=== PATIENT | female | born 1950 | race Caucasian/White ===

== ENCOUNTER → 2018-07-28 10:26 | Outpatient (CLI) | payer MEDICARE, OTHER, SELFPAY ==
--- NOTE | 2018-07-28 | DI.RAD.S_ITS ---
PROCEDURE: FL JOINT INJECTION LARGE LT INDICATIONS: UNILATERAL PRIMARY OSTEOARTHRITIS TECHNIQUE: The indications, alternatives, benefits, risks, and complications of the procedure were explained to the patient. Written informed consent was obtained and placed in the chart. The patient was placed in an appropriate position on the fluoroscopy table, and a site was chosen for percutaneous access under fluoroscopic guidance. The site was prepped and draped in a sterile fashion. Local anesthetic was administered using a 1% lidocaine solution. A hypodermic or spinal needle was then used to access the symptomatic joint. Intra-articular location of the needle tip was confirmed by injecting a small amount of contrast, followed by steroid administration. The needle was then withdrawn, and a bandage applied to the puncture site. FINDINGS: Joint injected: Right hip Medications injected: One mL of 40 mg/mL Kenalog and 3 mL of 0.5% Ropivacaine mixture. Patient's pain before injection: 7 out of 10. Patient's pain after injection: 1 out of 10. Complications: None. IMPRESSION: Successful fluoroscopically guided administration of steroid and anaesthetic solution into the right hip joint. Dictated by: Binh Knight M.D. on 07/29/2018 at 9:19 Approved by: Binh Knight M.D. on 07/29/2018 at 9:21
== END ==
PROVIDERS: PCP Family Medicine; Visit Provider Orthopaedic Surgery
DX: M16.11 Unilateral primary osteoarthritis, right hip (principal)
CPT/HCPCS: 20610; 77002

== ENCOUNTER 2019-02-22 08:07 | Inpatient (IN) | payer MEDICARE, OTHER, SELFPAY ==
[2019-02-15 10:00] VITALS: BMI 38.6
[2019-02-22] VITALS (17 sets, daily range): BP systolic 97–132; BP diastolic 36–71; PULSE 64–97; RESP 10–21; TEMP 36.1–36.9; O2SAT 93–100; BMI 38.7
--- NOTE | 2019-02-22 08:00 | DI.RAD.S_ITS ---
PROCEDURE: XR PELVIS 1-2V INDICATIONS: POST OPERATIVE RIGHT HIP TECHNIQUE: Intra-operative view of the pelvis and hip acquired. COMPARISON: [facility] Goldman, CR, XR PELVIS WITH LATERAL HIP RIGHT, 01/28/2019, 11:13. FINDINGS: Bones: Intraoperative devices prior to placement of arthroplasty prostheses are in expected positions. No fractures or suspicious bony lesions. Soft tissues: Overlying surgical retractors are present, along with other intraoperative changes. IMPRESSION: Right hip arthroplasty with prosthesis in anatomic alignment. Dictated by: Mayra Ramos M.D. on 02/22/2019 at 15:24 Approved by: Mayra Ramos M.D. on 02/22/2019 at 15:25
[2019-02-22] MEDS: LACTATED RINGERS 1,000 ML 42 ML IV ×2 (09:28→13:42)
--- NOTE | 2019-02-22 09:41 | PM.PREOP ---
Pre-operative Note Interval Note History & Physical reviewed/Exam performed by Physician: Yes Changes to H&P: No
[2019-02-22] MEDS: ACETAMINOPHEN 325 MG TABLET 975 MG PO (09:43)
[2019-02-22] MEDS: PREGABALIN 75 MG CAPSULE PO (09:43)
[2019-02-22] MEDS: CELECOXIB 200 MG CAPSULE PO (09:43)
--- NOTE | 2019-02-22 09:57 | SUR.PREOP ---
Vantin allergy discussed with Dr. Frost. Pt reports tolerating penicillin in the past. Ok to given Ancef per .
[2019-02-22] MEDS: CEFAZOLIN 2 GM/100 ML FROZ.PIGGY IV ×2 (12:24→21:37)
--- NOTE | 2019-02-22 12:40 | SUR.OPER ---
Lateral on padded OR bed. Gel axillary roll. Arms secured on padded armboard with pillow supporting top arm. Padded hip positioner braces x4 - anterior and posterior chest and pelvis. Additional gel pad used anterior pelvis. Gel pad under bottom leg from knee to foot and secured with tape over sheet.
[2019-02-22] MEDS: MORPHINE 4 MG/ML INJ INJ (12:45)
[2019-02-22] MEDS: ROPIVACAINE 0.5% PF 5 MG/ML 20ML AMP 60 ML INJ (12:46)
[2019-02-22] MEDS: KETOROLAC 30 MG/ML VIAL IV (12:46)
--- NOTE | 2019-02-22 14:03 | PM.OP.1 ---
Operative Date/Time/Diagnoses Date of procedure: 02/22/19 Time of procedure: 14:03 Pre-op diagnosis: Right hip degenerative joint disease Post-op diagnosis: same Procedure & Clinicians Procedure: Right total hip arthroplasty (CPT code 79094 with social research assistant) Same procedure as scheduled: Yes Indications: Patient is an 68-year-old female with severe right hip DJD. The patient has pain with activities and at rest, limited ambulation and activity tolerance, difficulties with ADLs, and failure of conservative treatment. We have discussed the nature of condition, treatment options, risks and benefits, and patient elects to proceed with total hip arthroplasty and gives informed consent. Surgeon: Eyad Frost Fish And Game Warden: Alonso Rizo Anesthesia Type: General and Spinal Operative Notes Closure Type: primary Specimen(s): none sent Prosthetic devices, grafts, tissues, transplants, or devices: Acetabulum: Palacio [employer]hew R3 acetabular component size 52 mm Femoral component: Palacio [employer]hew Anthology stem size 6 with standard offset Femoral head: 36 mm + 0 cobalt chrome Estimated Blood Loss (mL): 200 Blood products transfused: none Procedure in detail: After satisfaction induction of anesthetic, and administration of IV antibiotics, the patient was positioned in the lateral decubitus position with all bony prominences well padded and pelvic position secured using a hip tank builder supervisor positioning device. Right hip and lower extremity prepped and draped in the usual sterile fashion, 1st dose of intravenous tranexamic acid was administered, then a longitudinal incision was created centered over the greater trochanter and carried sharply through the skin and subcutaneous tissues down to the fascia joshua which was divided longitudinally and retracted with a Charnley retractor. External rotators visualize, cut, tagged, and retracted posteriorly, then the capsule was cut in a T-type fashion with the corners tagged and retracted. Hip was dislocated and femoral neck cut made according to preoperative templating. Acetabular retractors then placed, and the acetabular labrum and osteophytes were excised. The acetabulum was then sequentially reamed to 51 mm with an excellent circumferential ream and fit with the trial. The trial component was removed and a permanent size 52 mm Palacio [employer] Nephew R3 acetabular component was selected, positioned, and impacted with satisfactory position and fixation achieved. Permanent liner was then inserted with the elevated lip directed posteriorly. Soft tissue then removed off the lateral femoral neck in the lateral neck was entered using a box osteotome. T-handled reamers placed down the canal followed by sequential broaching to 6 with the final broach left in place for trial reduction which demonstrated excellent leg length, range of motion, and stability characteristics with a 36 mm +0 trial ball. The trial and broach were removed, and a permanent size 6 Palacio [employer] Nephew Synergy stem was selected and inserted with excellent position and fixation achieved. Another trial reduction yielded the above characteristics so the trial ball was exchanged for a permanent 36 mm +0 cobalt chrome ball. The hip was irrigated and reduced and excellent leg length range of motion and stability characteristics were achieved and maintained. Periarticular tissues were infiltrated with ropivacaine, morphine, and Toradol. The hip was copiously irrigated, and the capsule repaired with #2 Ethibond, and the piriformis was repaired back to the greater trochanter with the same. Fascia joshua closed with interrupted #1 Ethibond sutures, and the subcutaneous tissues were closed in 2 layers of 0 Vicryl and 2 0 Vicryl. Skin was closed with amalia and sterile dressings applied. Second dose of tranexamic acid was administered intravenously, and the anesthetic was terminated. Complications: none Condition: stable Disposition: PACU Plan for aftercare: Patient will be admitted to the acute care [facility], and anticipate discharge on postop day 1 or 2 with follow-up in office in 10-14 days. Outpatient physical therapy will be arranged and patient will continue to observe posterior hip precautions. Patient will continue use of postoperative Lovenox for 10 days postop.
--- NOTE | 2019-02-22 14:07 | P.OP_ITS ---
Operative Date/Time/Diagnoses Date of procedure: 02/22/19 Time of procedure: 14:03 Pre-op diagnosis: Right hip degenerative joint disease Post-op diagnosis: same Procedure & Clinicians Procedure: Right total hip arthroplasty (CPT code 40468 with assistant city attorney) Same procedure as scheduled: Yes Indications: Patient is an 68-year-old female with severe right hip DJD. The patient has pain with activities and at rest, limited ambulation and activity tolerance, difficulties with ADLs, and failure of conservative treatment. We have discussed the nature of condition, treatment options, risks and benefits, and patient elects to proceed with total hip arthroplasty and gives informed consent. Surgeon: Eyad Frost Community Service Manager: Alonso Rizo Anesthesia Type: General and Spinal Operative Notes Closure Type: primary Specimen(s): none sent Prosthetic devices, grafts, tissues, transplants, or devices: Acetabulum: Palacio [employer] Nephew R3 acetabular component size 52 mm Femoral component: Palacio and Nephew Anthology stem size 6 with standard offset Femoral head: 36 mm + 0 cobalt chrome Estimated Blood Loss (mL): 200 Blood products transfused: none Procedure in detail: After satisfaction induction of anesthetic, and administration of IV antibiotics, the patient was positioned in the lateral decubitus position with all bony prominences well padded and pelvic position secured using a hip capacity planner positioning device. Right hip and lower extremity prepped and draped in the usual sterile fashion, 1st dose of intravenous tranexamic acid was administered, then a longitudinal incision was created centered over the greater trochanter and carried sharply through the skin and subcutaneous tissues down to the fascia joshua which was divided longitudinally and retracted with a Charnley retractor. External rotators visualize, cut, tagged, and retracted posteriorly, then the capsule was cut in a T-type fashion with the corners tagged and retracted. Hip was dislocated and femoral neck cut made according to preoperative templating. Acetabular retractors then placed, and the acetabular labrum and osteophytes were excised. The acetabulum was then sequentially reamed to 51 mm with an excellent circumferential ream and fit with the trial. The trial component was removed and a permanent size 52 mm Palacio and Nephew R3 acetabular component was selected, positioned, and impacted with satisfactory position and fixation achieved. Permanent liner was then inserted with the elevated lip directed posteriorly. Soft tissue then removed off the lateral femoral neck in the lateral neck was entered using a box osteotome. T- handled reamers placed down the canal followed by sequential broaching to 6 with the final broach left in place for trial reduction which demonstrated excellent leg length, range of motion, and stability characteristics with a 36 mm +0 trial ball. The trial and broach were removed, and a permanent size 6 Palacio and Nephew Synergy stem was selected and inserted with excellent position and fixation achieved. Another trial reduction yielded the above characteristics so the trial ball was exchanged for a permanent 36 mm +0 cobalt chrome ball. The hip was irrigated and reduced and excellent leg length range of motion and stability characteristics were achieved and maintained. Periarticular tissues were infiltrated with ropivacaine, morphine, and Toradol. The hip was copiously irrigated, and the capsule repaired with #2 Ethibond, and the piriformis was repaired back to the greater trochanter with the same. Fascia joshua closed with interrupted #1 Ethibond sutures, and the subcutaneous tissues were closed in 2 layers of 0 Vicryl and 2 0 Vicryl. Skin was closed with amalia and sterile dressings applied. Second dose of tranexamic acid was administered intravenously, and the anesthetic was terminated. Complications: none Condition: stable Disposition: PACU Plan for aftercare: Patient will be admitted to the acute care [facility], and anticipate discharge on postop day 1 or 2 with follow-up in office in 10-14 days. Outpatient physical therapy will be arranged and patient will continue to observe posterior hip precautions. Patient will continue use of postoperative Lovenox for 10 days postop.
--- NOTE | 2019-02-22 14:45 | PT.IPTN ---
Current Diagnoses Unilateral primary osteoarthritis, right hip (02/22/19) Surgery Performed Operation Date: 02/22/19 10:30 Actual Procedures p Total Hip Arthroplasty-Posterior(Right) - Eyad Frost MD Physical Therapy Treatment Note Notes Pt just arriving to unit, not yet ready to participate in therapy assessment. PT to attempt later in afternoon or tomorrow.
--- NOTE | 2019-02-22 15:26 | PC.NURSE ---
Pt transferred to the floor from PACU at 1500 with O2 1L=99%; A & O X3; [facility] drsg to right hip c/d/i; PPP; denies pain; IV saline locked; call light placed within reach and report given to evening RN
[2019-02-22] MEDS: LACTATED RINGERS 1,000 ML 125 ML IV (15:32)
[2019-02-22] MEDS: OXYCODONE/ACETAMINOPHEN 5/325 TABLET 1 TAB PO (18:08)
[2019-02-22] MEDS: ROSUVASTATIN 10 MG TABLET 5 MG PO (21:38)
[2019-02-23] VITALS (7 sets, daily range): BP systolic 112–140; BP diastolic 42–65; PULSE 77–100; RESP 16–18; TEMP 36.4–36.8; O2SAT 93–97
[2019-02-23] MEDS: LACTATED RINGERS 1,000 ML 125 ML IV (00:05)
[2019-02-23] MEDS: CEFAZOLIN 2 GM/100 ML FROZ.PIGGY IV (05:05)
[2019-02-23 05:33] LABS: Hematocrit 34.6 % (36-46)
--- NOTE | 2019-02-23 07:40 | PM.PNPO.1 ---
Subjective Date Patient Seen: 02/23/19 Time Patient Seen: 07:41 Interval history: Patient's pain is mild. Denies fever chills. No nausea /vomiting. Exam Vital Signs (past 8 hours): - 02/23/19 00:10 02/23/19 03:16 Temperature 98.0 F Pulse Rate 95 H 100 H Respiratory Rate 16 18 Blood Pressure 138/61 Pulse Oximetry 94 96 Oxygen Delivery Method Room Air Oxygen Flow Rate 4 Narrative Exam Narrative: Pleasant 68-year-old female resting comfortably in bed in no apparent distress. Zena dressing on and functioning. Sensation grossly intact to light touch. Motor function is intact distally. Right leg is warm and dry. Objective Labs Result Diagrams: 02/23/19 05:03 Labs: Laboratory Results - last 24 hr 02/23/19 05:03 Hgb 11.0 L Hct 34.6 L Assessment & Plan Post-op Postoperative Procedures Operation Date: 02/22/19 10:30 Actual Procedures Side Surgeon p Total Hip Arthroplasty-Posterior Right Eyad Frost MD Patient progressing as expected status post right total hip arthroplasty. Weightbearing as tolerated right lower extremity. Posterior hip precautions. Likely discharge home tomorrow.
[2019-02-23] MEDS: HYDROCODONE/ACET 5/325 TABLET 1 TAB PO ×2 (08:45→18:06)
[2019-02-23] MEDS: CITALOPRAM 20 MG TABLET PO (08:45)
[2019-02-23] MEDS: ENOXAPARIN 40 MG/0.4 ML SYRINGE SUBCUT (08:49)
[2019-02-23] MEDS: SODIUM CHLORIDE 0.9% FLUSH 10 ML IV ×2 (08:50→21:36)
--- NOTE | 2019-02-23 09:50 | PT.IIE ---
Current Diagnoses Unilateral primary osteoarthritis, right hip (02/22/19) Surgery Performed Operation Date: 02/22/19 10:30 Actual Procedures p Total Hip Arthroplasty-Posterior(Right) - Eyad Frost MD Surgical History (Last Updated 02/15/19 @ 10:30 by Madhuri Recio RN) History of bladder suspension procedure (Acute) History of dilation and curettage (Acute) Hx of arthroscopy of left knee (Acute) Hx of cholecystectomy (Acute) Hx of tonsillectomy (Acute) Medical History (Last Updated 02/15/19 @ 10:31 by Madhuri Recio RN) Acid reflux (Acute) Bilateral cataracts (Acute) Bronchitis (Acute) Depression (Acute) Fatty liver (Acute) Frequent urinary tract infections (Acute) H/O: hysterectomy (Acute ~1997) HLD (hyperlipidemia) (Acute) Impaction, bowel (Acute ~2013) Migraines (Acute) Mitral valve prolapse (Acute) Osteoarthritis (Acute) Pre-diabetes (Acute) Sleep apnea (Acute) Physical Therapy Inpatient Evaluation/Re-Eval M1 PT/OT-IP Prior Functional Status Start: 02/22/19 14:55 Freq: NEEDED Status: Active Protocol: Document 02/23/19 09:50 AB (Rec: 02/23/19 13:00 AB [id number]) Medical Review Prior Functional Status Medical History Reviewed Yes Communication able to make needs known Mobility and Gait pt stated that she is modified independent with all mobilities and ambulation without AD indoors and uses SPC for outdoor mobility Social History Household Members spouse Living Arrangements House Number of Floors (Floors) One Floor Number of Stairs To Enter/Railing? 2 steps to enter with L rail ascending Home Environment High Toilet Walk in Shower Home Equipment Front Wheel Walker Straight Cane Raised Toilet Seat w/Armrests Hand Held Shower Clin Application Specialist Grab Bars Near Toilet Grab Bars In Shower Employment Status Retired Additional Social History Comment pt stated that she has an adjustable bed at home without rails M2 PT-IP Current Condition Start: 02/22/19 14:55 Freq: NEEDED Status: Active Protocol: Document 02/23/19 09:50 AB (Rec: 02/23/19 13:00 AB [id number]) Physical Therapy Current Condition Current Condition Evaluation Date 02/23/19 Treatment Diagnosis s/p R FRANTZ posterior approach; difficulty in walking Onset Date 02/22/19 Precautions Posterior Hip Precautions No Hip Flexion > 90 degrees No Hip Internal Rotation No Hip Adduction Weight Bearing Status Weight Bearing Status Weight Bear as Tolerated M3 PT-IP Subjective Start: 02/22/19 14:55 Freq: NEEDED Status: Active Protocol: Document 02/23/19 09:50 AB (Rec: 02/23/19 13:00 AB [id number]) Subjective Physical Therapy Visit Type Type Initial Evaluation Visit Start Time 09:50 Visit Stop Time 10:35 Total Visit Minutes 45 Number of TRANSFORMATION CONSULTANT Visits 0 Physical Therapy Visit Comments Patient Comments pt agreeable to do PT Therapy Pain Assessment Pain When Pain Assessed During Mobility Pain Present Pain Present Pain Reported Location Right Hip Intensity 3 Scale Used Numeric (1 - 10) Pain Management Techniques Apply Cold Re-positioning Timing of Activity with Medications M4 PT-IP Mobility and Gait Start: 02/22/19 14:55 Freq: NEEDED Status: Active Protocol: Document 02/23/19 09:50 AB (Rec: 02/23/19 13:00 AB [id number]) PT-Bed Mobility Assessment Supine to Sit Supine to Sit Standby Assistance Sit to Supine Sit to Supine Standby Assistance PT-Transfer Assessment Sit to and From Stand Sit to and from Stand Moderate Assistance 1 Person Assistance Use of Upper Extremities Equipment Transfer Assistive Device Gait Belt Front Wheeled Walker Transfers Transfer Destination Toilet Transfer Technique pt ambulated using FWW Transfer Ability Level of Assist Minimal Assistance Use of Upper Extremities Comments Mobility Comments pt requested to use the toilet and ambulated using FWW mod A and cues to maintain hip precautions. pt initially was not putting weight on RLE and educated on weight bearing restriction. pt has difficulty with hygiene care and requires min A and cues to maintain standing using FWW during hygiene care. pt ambulated using FWW from the toilet to the sink using FWW min to mod A and cues and was able to maintain standing using FWW for support CGA. Gait Assessment Gait Gait Assistance Required: Minimum Assistance Moderate Assistance Distance (Feet) 12 Able to Maintain Weight Bearing Status Yes During Gait Assistive Devices Assistive Device Gait Belt Front Wheeled Walker Orthotic/Prosthetic Devices or Brace: No Gait Deviations General Gait Pattern Antalgic Decreased Stride Length Decreased Feet Clearance Factors Limiting Gait Function Factors Limiting Gait Function Decreased Activity Tolerance Decreased Strength Limited Range of Motion Pain Poor Balance Poor Safety Awareness PT-Balance Assessment Sitting Balance and Reactions Static Sitting Balance Ability Good Dynamic Sitting Balance Ability Good Standing Balance and Reactions Static Standing Balance Ability Fair Dynamic Standing Balance Ability Fair Device Used FWW M5 PT-IP Objective Assessments Start: 02/22/19 14:55 Freq: NEEDED Status: Active Protocol: Document 02/23/19 09:50 AB (Rec: 02/23/19 13:00 AB [id number]) Orientation Orientation/Cognition Level of Alertness Alert Orientation Name Age Place Situation Language Function Ability No Deficits Noted Safety Awareness Decreased Safety Awareness Memory Description Short Term Impaired Gross Range of Motion Lower Extremity ROM Assessment Right Impaired Impairments R hip tighness during AROM/ PROM Strength Lower Extremity Strength Assessment Right Impaired Hip 3-/5 Knee 3-/5 Coordination Assessment Gross Coordination Gross Coordination WNL Sensation Assessment Sensation Gross Sensation WNL Muscle Tone Muscle Tone WNL Yes M6 PT-IP Treatment Start: 02/22/19 14:55 Freq: NEEDED Status: Active Protocol: Document 02/23/19 09:50 AB (Rec: 02/23/19 13:00 AB [id number]) Physical Therapy Treatment Exercises Exercises Quad Sets Heel Slides Education Education Provided Precautions Weight Bearing Status Post-Op Packet Safety M7 PT-IP Assessment and Plan Start: 02/22/19 14:55 Freq: NEEDED Status: Active Protocol: Document 02/23/19 09:50 AB (Rec: 02/23/19 13:00 AB [id number]) PT Summary Assessment and Plan Potential Rehabilitation Potential Good Status of Condition at Evaluation Stable Summary Impairments Pain ROM Strength Balance Coordination Sensation Tone Cognition Bed Mobility Transfers Gait Activity Tolerance Assessment Summary pt requiring min to mod A with mobility and will likely improve during hospital stay. will conduct caregiver training when appropriate and will complete stair climbing training priro to d/c. pt stated that she is set up for outpt PT already. Goals Bed Mobility Goal Independent Transfer Goal Standby Assistance Front Wheeled Walker Gait Goal Standby Assistance Front Wheel Walker Gait Distance 200 Other Goals up/down 2 steps with L rail ascending SBA Days to Meet Goals 3 Frequency of Treatment Frequency Of Treatment Twice a Day Treatment Plan Physical Therapy Treatment Plan Bed Mobility Training Transfer Training Gait Training Therapeutic Exercise Balance Retraining Post Op Education Discharge Planning Hot or Cold Pack Neuromuscular Re-ed Coordination Retraining Manual Therapy Other Recommendations and Next Treatment ambulation, caregiver training Focus Recommendations To Nursing Amount of Assist Needed 1 Person Assist Discharge Recommendations PT Discharge Recommendations Home with Assistance Outpatient PT Equipment Needed for Home Before shower chair, bedside commode Discharge
--- NOTE | 2019-02-23 11:09 | PC.NURSE ---
Pt hip dressing is cdi, mine. Up with 1 SBA to use the bathroom. Given 1 oxycodone for pain and pt is comfortable. Back to bed after sitting up in chair and working with physical therapy.
[2019-02-23] MEDS: OXYCODONE IR 5 MG TABLET PO (13:36)
--- NOTE | 2019-02-23 16:01 | PT.IPTN ---
Current Diagnoses Unilateral primary osteoarthritis, right hip (02/22/19) Surgery Performed Operation Date: 02/22/19 10:30 Actual Procedures p Total Hip Arthroplasty-Posterior(Right) - Eyad Frost MD Physical Therapy Treatment Note M2 PT-IP Current Condition Start: 02/22/19 14:55 Freq: NEEDED Status: Active Protocol: Document 02/23/19 09:50 AB (Rec: 02/23/19 13:00 AB [id number]) Physical Therapy Current Condition Current Condition Evaluation Date 02/23/19 Treatment Diagnosis s/p R FRANTZ posterior approach; difficulty in walking Onset Date 02/22/19 Precautions Posterior Hip Precautions No Hip Flexion > 90 degrees No Hip Internal Rotation No Hip Adduction Weight Bearing Status Weight Bearing Status Weight Bear as Tolerated M3 PT-IP Subjective Start: 02/22/19 14:55 Freq: NEEDED Status: Active Protocol: Document 02/23/19 15:50 CLB (Rec: 02/23/19 16:01 CLB [id number]) Subjective Physical Therapy Visit Type Type Treatment Note Visit Start Time 15:20 Visit Stop Time 15:45 Total Visit Minutes 25 Notes Caregiver training with Friday at 11:00. Number of MEMBER CERTIFICATION MANAGER Visits 1 Physical Therapy Visit Comments Patient Comments pt agreeable to do PT Therapy Pain Assessment Pain When Pain Assessed During Mobility Pain Present Pain Present Pain Reported Location Right Hip Intensity 3 Scale Used Numeric (1 - 10) Pain Management Techniques Apply Cold Re-positioning Timing of Activity with Medications M4 PT-IP Mobility and Gait Start: 02/22/19 14:55 Freq: NEEDED Status: Active Protocol: Document 02/23/19 15:50 CLB (Rec: 02/23/19 16:01 CLB [id number]) PT-Bed Mobility Assessment Supine to Sit Supine to Sit Standby Assistance Sit to Supine Sit to Supine Standby Assistance Scooting Scooting to Edge of Bed Standby Assistance PT-Transfer Assessment Sit to and From Stand Sit to and from Stand Contact Guard Assistance 1 Person Assistance Use of Upper Extremities Transfers Transfer Destination Chair Transfer Technique pt ambulated using FWW Transfer Ability Level of Assist Contact Guard Assistance Gait Assessment Gait Gait Assistance Required: Contact Guard Assist Distance (Feet) 70 Able to Maintain Weight Bearing Status Yes During Gait Assistive Devices Assistive Device Gait Belt Front Wheeled Walker Orthotic/Prosthetic Devices or Brace: No Gait Deviations General Gait Pattern Antalgic Decreased Stride Length Decreased Feet Clearance Factors Limiting Gait Function Factors Limiting Gait Function Decreased Activity Tolerance Decreased Strength Limited Range of Motion Pain Poor Balance Poor Safety Awareness Comments Gait Comments Pt requires cues for foot position during turns to prevent hip IR. M5 PT-IP Objective Assessments Start: 02/22/19 14:55 Freq: NEEDED Status: Active Protocol: Document 02/23/19 09:50 AB (Rec: 02/23/19 13:00 AB [id number]) Orientation Orientation/Cognition Level of Alertness Alert Orientation Name Age Place Situation Language Function Ability No Deficits Noted Safety Awareness Decreased Safety Awareness Memory Description Short Term Impaired Gross Range of Motion Lower Extremity ROM Assessment Right Impaired Impairments R hip tighness during AROM/ PROM Strength Lower Extremity Strength Assessment Right Impaired Hip 3-/5 Knee 3-/5 Coordination Assessment Gross Coordination Gross Coordination WNL Sensation Assessment Sensation Gross Sensation WNL Muscle Tone Muscle Tone WNL Yes M6 PT-IP Treatment Start: 02/22/19 14:55 Freq: NEEDED Status: Active Protocol: Document 02/23/19 15:50 CLB (Rec: 02/23/19 16:01 CLB [id number]) Physical Therapy Treatment Exercises Exercises Gluteal Sets Quad Sets Heel Slides Supine Hip Abduction Education Education Provided Precautions Weight Bearing Status Safety M7 PT-IP Assessment and Plan Start: 02/22/19 14:55 Freq: NEEDED Status: Active Protocol: Document 02/23/19 15:50 CLB (Rec: 02/23/19 16:01 CLB [id number]) PT Summary Assessment and Plan Summary Impairments Pain ROM Strength Balance Coordination Sensation Tone Cognition Bed Mobility Transfers Gait Activity Tolerance Assessment Summary Pt improved with bed mobility and ambulation quality and distance. Goals Bed Mobility Goal Independent Transfer Goal Standby Assistance Front Wheeled Walker Gait Goal Standby Assistance Front Wheel Walker Other Goals up/down 2 steps with L rail ascending SBA Days to Meet Goals 3 Frequency of Treatment Frequency Of Treatment Twice a Day Treatment Plan Physical Therapy Treatment Plan Bed Mobility Training Transfer Training Gait Training Therapeutic Exercise Balance Retraining Post Op Education Discharge Planning Hot or Cold Pack Neuromuscular Re-ed Coordination Retraining Manual Therapy Other Recommendations and Next Treatment ambulation and stairs: Focus caregiver training, Pt will be in at 11:00 on for caregiver training. Recommendations To Nursing Amount of Assist Needed 1 Person Assist Discharge Recommendations PT Discharge Recommendations Home with Assistance Outpatient PT Equipment Needed for Home Before shower chair, bedside commode Discharge
--- NOTE | 2019-02-23 16:03 | CM.DANOTE ---
DCP/Assessment: Reviewed chart. Patient is a 68yr old female admitted to [facility] for elective right FRANTZ performed on 02-22-[address] Frost. PCP is Dr. Yanez. Primary payor is 1)Medicare 2)[employer]. Met with patient explained CM/SW role. Patient alert and oriented at time of visit. Patient plans to d/c home when medically stable. Patient has all needed DME at her residence. Patient has outpatient therapy arranged in [facility]. Therapy evaluation pending. P: Anticipate home with outpatient therapy when medically stable. KIMBERLEY Brian Discharge Planning/Care Management CM Discharge Assessment Start: 02/23/19 15:58 Freq: Status: Active Protocol: Document 02/23/19 15:58 KJS (Rec: 02/23/19 16:02 KJS [id number]) Discharge Planning Assessment Assigned Client Relationship Executive KIMBERLEY Brian Contact Information Rajesh aPnfilo (spouse) Advance Directives? Yes Advance Directives on File No History Provided By Patient Medical Record Prior Living Arrangements House Household Members spouse Type of transporation used prior to Drives own vehicle admit Independent with ADL's Yes Is patient alert and oriented? Yes Caregiver for Another No DME Already Rented / Owned FWW / Walker Barriers to Discharge No Discharge Plan Home Transportation Arrangement Family to provide transport. Referrals Initiated None needed Whiteboard Updated in Patient Room with Yes name and ext. # of Client Relationship Executive Review Status In Process Next Review Type Continued Stay Review Pre-Anesthesia Assessment Start: 02/15/19 10:00 Freq: Status: Complete Protocol: Document 02/15/19 10:00 CAB (Rec: 02/15/19 10:45 CAB [id number]) Pre-Anesthesia Assessment Patient Information Reviewed Via Phone Assessment Assessment Completed With Patient Diagnostic Results BMP/CMP CBC EKG Other Comment A1c. Outside labs/EKG scanned to record Primary Care Provider Mike Yanez Seen Specialist in Last 12 Months Yes Specialist Seen Component Assembler Orthopedist Primary Language Yi Oracle Applications Developer Required No Height 165.1 cm Weight 105.233 kg Body Mass Index (BMI) 38.6 Hearing Ability Normal Visual Assist Glasses Dentition Type Teeth, Natural Present Barriers to Learning None Other Aids Yes: CPAP Hx Anesthesia Reactions Yes: Pt told difficult to get tube down w/hysterectomy Hx Family Anesthesia Reaction No Hx Malignant Hyperthermia No Hx Blood Transfusions No Anesthesia Review Requested No Water Systems Engineer No alcohol intake current alcohol intake frequency a few times a month Smoking Status Never smoker Substance Use Type does not use Pain Present Pain Reported Musculoskeletal Symptoms Abnormal Gait Difficulty Walking Joint Pain History of Falling (Recent or History of Yes ) Patient is completely paralyzed or No completely immobile Prosthesis or Orthotic Device Cane Mental Status Oriented to own ability Is patient on oxygen? No Does patient have GANN/SOB No Hx Sleep Apnea Yes CPAP/BIPAP use prescribed and used routinely Will Bring CPAP/BIPAP DOS Yes Currently Taking a Beta Jose G No Can You Climb a Flight of Stairs Without No: Pt feels due more to SOB deconditioning Hx Chest Pain No Hx SOB No Hx Syncope or Dizziness No Anti-Coagulant Therapy No Has a Carpenter Refrigerator No Cardiac Testing No Hx Pacemaker/ICD No Pacemaker Rep Required? No Cardiac Clearance Received Not Applicable Diet Type At Home Regular dysphagia No Bladder Pattern Incontinent Urinary Catheter Present No Hx Urinary Self Catheterization No Diabetes No HgbA1C 6.3 Date 01/15/19 Patient No Lactating No Hx Drug Resistant Organism No Presence of External or Internal Medical Yes: CPAP Devices Have you traveled outside the [facility] in the last 30 days? Marital Status Lives With spouse Prior Living Arrangements House Number of Floors (Floors) One Floor Support System Spouse Does the Patient Have Assistance After Yes Surgery Patient Discharge Plan Description Return Home Comment Pt advised overnight length of stay per surgeon's office Feels Safe in Current Environment Yes Been Physically Hurt or Threatened By a No Person in Current Environment Do you have thoughts of harming yourself None or others? Are you currently considering suicide? No Do you have a plan to hurt yourself or No Plan others? Do You Have Any Spiritual Beliefs That No May Affect Your HC Choices? Do You Have Any Cultural Practices That No May Affect Your HC Choices? Spiritual Referral None Comment Rastafari Who Can We Speak to About Patient's Care Family, friends Identifying Code for Release of Patient Declines to issue Information Health Care Proxy/Next of Kin Rajesh () Health Care Proxy Emergency Contact Name Rajesh () Emergency Contact Advance Directives? Yes Advance Directives on File No Requested Patient Bring Advanced Yes Directives DOS Power of Live Ammunition Inspector Yes Power of Live Ammunition Inspector Name Rajesh () Power of Live Ammunition Inspector PAC Instructions Bring CPAP/BIPAP Do not shave/clip surgical site Durable medical equipment Medications to take/avoid Nasal antibiotic No ETOH/petroleum product on skin DOS NPO Post-op transportation Pre-surgical wash Sensory aids Sturdy shoes/comfortable clothes Do not bring valuables and remove jewelry
[2019-02-23] MEDS: ROSUVASTATIN 10 MG TABLET 5 MG PO (18:06)
[2019-02-24] MEDS: OXYCODONE IR 5 MG TABLET PO ×3 (01:25→09:01)
[2019-02-24 06:32] VITALS: BP 128/55; PULSE 89; RESP 16; TEMP 37; O2SAT 92
--- NOTE | 2019-02-24 08:07 | PM.DS.1 ---
History of Present Illness Date Patient Seen: 02/24/19 Time Patient Seen: 08:07 Chief complaint: [id number] Narrative: Patient's pain is moderate. Denies fever chills. No nausea vomiting. Patient is able walk down the [place]oria with physical therapy yesterday. Patient's is home to assist her. The patient is otherwise without complaints this morning. Discharge Providers Date of admission: 02/22/19 08:07 Discharge Date: 02/24/19 Primary care physician: Mike Yanez MD Consults: 02/22/19 14:39 Consult to Discharge Planning Routine Comment: Consult to Physical Therapy Evaluate & Treat Comment: Physician Instructions: post op FRANTZ protocol Consult to Respiratory Therapy Evaluate & Treat Comment: Physician Instructions: Evaluate and treat 02/22/19 15:21 Consult to Respiratory Therapy Evaluate & Treat Comment: Sleep Apnea - CPAP Physician Instructions: Evaluate and treat Discharge provider: Alonso Rizo PA-C Summary Discharge Diagnosis: Patient status post right total hip arthroplasty Hospital Course: Procedure: Right total hip arthroplasty (CPT code 89915 with assistant plant manager) Same procedure as scheduled: Yes Indications: Patient is an 68-year-old female with severe right hip DJD. The patient has pain with activities and at rest, limited ambulation and activity tolerance, difficulties with ADLs, and failure of conservative treatment. We have discussed the nature of condition, treatment options, risks and benefits, and patient elects to proceed with total hip arthroplasty and gives informed consent. Surgeon: Eyad Frost Administrative Services Specialist: Alonso Rizo Anesthesia Type: General and Spinal Operative Notes Closure Type: primary Specimen(s): none sent Prosthetic devices, grafts, tissues, transplants, or devices: Acetabulum: [employer]acio [employer] R3 acetabular component size 52 mm Femoral component: [employer] Anthology stem size 6 with standard offset Femoral head: 36 mm + 0 cobalt chrome Estimated Blood Loss (mL): 200 Blood products transfused: none Patient admitted to the hospital for right total hip arthroplasty. Patient failed conservative treatment for severe right hip DJD. Patient consented to the same. Patient taken to the operating room underwent right total hip arthroplasty. Patient is back in her room recovering well as in stable condition. Patient will be discharged home today in stable condition. Status at Discharge Cognitive/behavioral status at discharge: at baseline, oriented Functional status at discharge: uses cane/walker Overall status at discharge: patient is progressing back to baseline Time Spent with Patient Less than 30 minutes Exam Vital Signs (past 8 hours): - 02/24/19 06:32 Temperature 98.6 F Pulse Rate 89 Respiratory Rate 16 Blood Pressure 128/55 L Pulse Oximetry 92 Oxygen Delivery Method Room Air,CPAP Oxygen Flow Rate 0 Narrative Exam Narrative: Pleasant 68-year-old female resting comfortably in bed in no apparent distress. Zena dressing is on and functioning. Dressing is clean, dry and intact. Sensation grossly intact to light touch right lower extremity. Motor functions intact. Right leg is warm and dry. Objective Labs Result Diagrams: 02/23/19 05:03 Discharge Plan Discharge Plan Patient Disposition: Home Discharge comment: DC home today after PT Discharge Med Rec/Prescriptions Prescriptions: New enoxaparin [Lovenox] 40 mg/0.4 mL Syringe 40 mg subcut DAILY Qty: 8 RF: 0 Continued citalopram 20 mg Tablet 20 mg PO DAILY RF: 0 rosuvastatin [Crestor] 10 mg Tablet 5 mg PO BEDTIME RF: 0 Follow up/Referrals: Mike Yanez MD [Primary Care Provider] - Eyad Frost MD [Physician] - (7 days) Provider Discharge Instructions Diet: Diet as Tolerated Activity: Weightbearing as tolerated. Posterior hip precautions. Cold/Heat Therapy: Apply ice to the affected area as needed. Other treatments: Keep dressing clean and dry Skin/Wound/Dressing Care Report to your healthcare provider any signs of infection, such as:: chills, fever, increased pain, unusual drainage and unusual redness Discharge Data Primary Care Provider: Mike Yanez Attending Provider: Eyad Frost Admit Date/Time: 02/22/19 08:07
[2019-02-24 08:09] VITALS: BP 129/59; PULSE 86; RESP 16; TEMP 37.1; O2SAT 92
[2019-02-24] MEDS: CITALOPRAM 20 MG TABLET PO (09:01)
[2019-02-24] MEDS: ENOXAPARIN 40 MG/0.4 ML SYRINGE SUBCUT (09:02)
[2019-02-24 11:37] VITALS: BP 128/59; PULSE 90; RESP 16; TEMP 37.1; O2SAT 96
--- NOTE | 2019-02-24 11:44 | PT.IPTN ---
Current Diagnoses Unilateral primary osteoarthritis, right hip (02/22/19) Surgery Performed Operation Date: 02/22/19 10:30 Actual Procedures p Total Hip Arthroplasty-Posterior(Right) - Eyad Frost MD Physical Therapy Treatment Note M2 PT-IP Current Condition Start: 02/22/19 14:55 Freq: NEEDED Status: Active Protocol: Document 02/23/19 09:50 AB (Rec: 02/23/19 13:00 AB [id number]) Physical Therapy Current Condition Current Condition Evaluation Date 02/23/19 Treatment Diagnosis s/p R FRANTZ posterior approach; difficulty in walking Onset Date 02/22/19 Precautions Posterior Hip Precautions No Hip Flexion > 90 degrees No Hip Internal Rotation No Hip Adduction Weight Bearing Status Weight Bearing Status Weight Bear as Tolerated M3 PT-IP Subjective Start: 02/22/19 14:55 Freq: NEEDED Status: Active Protocol: Document 02/24/19 11:40 GGD (Rec: 02/24/19 11:44 GGD [id number]) Subjective Physical Therapy Visit Type Type Treatment Note Visit Start Time 11:10 Visit Stop Time 11:40 Total Visit Minutes 30 Number of ENGINE EMISSION TECHNICIAN Visits 2 Physical Therapy Visit Comments Patient Comments Pt would like to get up. Therapy Pain Assessment Pain When Pain Assessed During Mobility Pain Present Pain Present Pain Reported M4 PT-IP Mobility and Gait Start: 02/22/19 14:55 Freq: NEEDED Status: Active Protocol: Document 02/24/19 11:40 GGD (Rec: 02/24/19 11:44 GGD [id number]) PT-Bed Mobility Assessment Supine to Sit Supine to Sit Standby Assistance Scooting Scooting to Edge of Bed Standby Assistance PT-Transfer Assessment Sit to and From Stand Sit to and from Stand Contact Guard Assistance 1 Person Assistance Use of Upper Extremities Equipment Transfer Assistive Device Gait Belt Front Wheeled Walker Transfers Transfer Destination Chair Transfer Ability Level of Assist Contact Guard Assistance Gait Assessment Gait Gait Assistance Required: Contact Guard Assist Distance (Feet) 100 Able to Maintain Weight Bearing Status Yes During Gait Assistive Devices Assistive Device Gait Belt Front Wheeled Walker Orthotic/Prosthetic Devices or Brace: No Gait Deviations General Gait Pattern Antalgic Decreased Stride Length Decreased Feet Clearance Factors Limiting Gait Function Factors Limiting Gait Function Decreased Activity Tolerance Decreased Strength Limited Range of Motion Pain Poor Balance Poor Safety Awareness Stair Climbing Assessment Evaluation Level of Assist On Stairs Standby Assistance Devices Stair Climbing Assistive Devices Left Railing Technique/Endurance Stair Climbing Direction Ascend and Descend Stair Climbing Technique Step to Step Number of Steps Climbed 3 Stair Climbing Set # Repetitions (reps) 1 M5 PT-IP Objective Assessments Start: 02/22/19 14:55 Freq: NEEDED Status: Active Protocol: Document 02/23/19 09:50 AB (Rec: 02/23/19 13:00 AB [id number]) Orientation Orientation/Cognition Level of Alertness Alert Orientation Name Age Place Situation Language Function Ability No Deficits Noted Safety Awareness Decreased Safety Awareness Memory Description Short Term Impaired Gross Range of Motion Lower Extremity ROM Assessment Right Impaired Impairments R hip tighness during AROM/ PROM Strength Lower Extremity Strength Assessment Right Impaired Hip 3-/5 Knee 3-/5 Coordination Assessment Gross Coordination Gross Coordination WNL Sensation Assessment Sensation Gross Sensation WNL Muscle Tone Muscle Tone WNL Yes M6 PT-IP Treatment Start: 02/22/19 14:55 Freq: NEEDED Status: Active Protocol: Document 02/24/19 11:40 GGD (Rec: 02/24/19 11:44 GGD [id number]) Physical Therapy Treatment Exercises Exercises Gluteal Sets Quad Sets Heel Slides Supine Hip Abduction Education Education Provided Precautions M7 PT-IP Assessment and Plan Start: 02/22/19 14:55 Freq: NEEDED Status: Active Protocol: Document 02/24/19 11:40 GGD (Rec: 02/24/19 11:44 GGD [id number]) PT Summary Assessment and Plan Summary Assessment Summary Pt improving with mobility. She was safe and stable with stair mobility. She improved awareness of hip precautions with mobility. Pt need cues for controlled sit. Pt safe for home D/C when medically stable. Frequency of Treatment Frequency Of Treatment Twice a Day Treatment Plan Physical Therapy Treatment Plan Bed Mobility Training Transfer Training Gait Training Therapeutic Exercise Balance Retraining Post Op Education Discharge Planning Hot or Cold Pack Neuromuscular Re-ed Coordination Retraining Manual Therapy Recommendations To Nursing Amount of Assist Needed 1 Person Assist Discharge Recommendations PT Discharge Recommendations Home with Assistance Outpatient PT
== END 2019-02-24 13:32 | disposition home or self-care (01) | DRG 470 ==
PROVIDERS: Admitting Provider Orthopaedic Surgery; PCP Family Medicine; Visit Provider Orthopaedic Surgery
PROC: 0SR90JZ Replacement of Right Hip Joint with Synthetic Substitute, Open Approach (ICD-10-PCS; CPT 27130; principal; 2019-02-22 10:30)
DX: M16.11 Unilateral primary osteoarthritis, right hip (principal); E66.9 Obesity, unspecified; G47.33 Obstructive sleep apnea (adult) (pediatric); I34.1 Nonrheumatic mitral (valve) prolapse; E11.9 Type 2 diabetes mellitus without complications; Z68.38 Body mass index [BMI] 38.0-38.9, adult
CPT/HCPCS: 36415; 72170; 85014; 85018; 94762; 97110; 97116; 97161; 97530; C1776; J0690; J1100; J1650; J1885; J2250; J2270; J2274; J2405; J2704; J2795; J3010